=== PATIENT | male | born 2000 | race Caucasian/White ===

== ENCOUNTER 2022-04-30 18:36 | Emergency (ER) | payer OTHER ==
[~2022-04-30 18:36] MED LIST: Iopamidol-370 76% 500 ML 1 ML ONE
[2022-04-30] MEDS ORDERED: Boostrix 0.5 ML (Tdap) VIAL ONE (19:51)
== END 2022-04-30 20:10 | disposition home or self-care (01) ==
LOC: ERS 18:36
DX: S42.022A Displaced fracture of shaft of left clavicle, initial encounter for closed fracture (principal); S80.211A Abrasion, right knee, initial encounter; Z23 Encounter for immunization; V89.2XXA Person injured in unspecified motor-vehicle accident, traffic, initial encounter
CPT/HCPCS: 71260; 74177; 90471; 90715; G0390; Q9967